=== PATIENT | female | born 1980 | race African-American/Black ===

== ENCOUNTER 2016-11-08 09:24 | Emergency (ER) | payer OTHER ==
[~2016-11-08] VITALS: Ht 160 cm; Wt 65.8 kg
[2016-11-08] MEDS ORDERED: FLUORESCEIN OPHTH TEST STRIP. OS ONE (10:30)
[2016-11-08] MEDS ORDERED: HYDROCODONE/APAP 5/325MG TABLET. PO ONE (10:30)
[2016-11-08] MEDS ORDERED: DIPHTH,PERTUSS(ACELL),TET TOX 0.5 ML DISP.SYRIN. VAX IM ONE (10:30)
[2016-11-08] MEDS ORDERED: TETRACAINE 0.5% OPHTH SOLUTION 4ML BOTTLE. OS ONE (10:30)
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
[2016-11-08] MEDS ORDERED: ERYT1OIN6 EACHEYE (11:50)
[2016-11-08] MEDS ORDERED: ACET-704 PO (11:50)
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
[2016-11-08 12:12] VITALS: BP 114/66
== END 2016-11-08 12:15 | disposition home or self-care (01) ==
LOC: ER 09:24
DX: H11.32 Conjunctival hemorrhage, left eye (principal); S90.02XA Contusion of left ankle, initial encounter; S05.02XA Injury of conjunctiva and corneal abrasion without foreign body, left eye, initial encounter; Y08.89XA Assault by other specified means, initial encounter; Y93.89 Activity, other specified; Y92.89 Other specified places as the place of occurrence of the external cause; Y99.8 Other external cause status
CPT/HCPCS: 70486; 90471; 90715; 99284-25

== ENCOUNTER 2019-01-30 20:32 | Emergency (ER) | payer SELFPAY ==
[~2019-01-30] VITALS: Ht 167.6 cm; Wt 90.7 kg
[~2019-01-30 20:32] MED LIST: ACET-704 PO; ERYT1OIN6 EACHEYE
[2019-01-30 21:05] VITALS: BP 158/91
[2019-01-30 21:36] LABS: BILIRUBIN,URINE NEGATIVE (NEG); CLARITY,URINE CLEAR; COLOR,URINE YELLOW; NITRITE,URINE NEGATIVE (NEG); PH,URINE 6.5; PROTEIN,URINE 100 mg/dL (NEG-TRACE)
[2019-01-30 21:44] LABS: RBC,URINE TNTC /HPF (0-2); SQUAMOUS EPITHELIAL CELL,UR MOD /LPF
[2019-01-30 21:45] LABS: BACTERIA,URINE MANY /HPF (0-FEW); WBC,URINE >40 /HPF (0-4)
[2019-01-30] MEDS ORDERED: CEPH-264 PO (21:54)
--- NOTE | 2019-01-30 21:55 | PHYS DOC ---
Past Medical History Past Medical History: No Pertinent History Past Surgical History: Tubal ligation Alcohol Use: Occasionally Drug Use: None Adult General Chief Complaint Chief Complaint: PAIN ON URINATION [facility] Patient is a 39 year old female who presents with mid lower abdominal pain with urinary frequency 2 days. Rates her pain and discomfort at a 5 out of 10 Review of Systems Review of Systems Constitutional: Denies fever or chills [] Eyes: Denies change in visual acuity, redness, or eye pain [] HENT: Denies nasal congestion or sore throat [] Respiratory: Denies cough or shortness of breath [] Cardiovascular: No additional information not addressed in HPI [] GI: lower mid abdominal pain, denies nausea, vomiting, bloody stools or diarrhea [] : urinary frequency. Denies dysuria or hematuria [] Musculoskeletal: Denies back pain or joint pain [] Integument: Denies rash or skin lesions [] Neurologic: Denies headache, focal weakness or sensory changes [] Endocrine: Denies polyuria or polydipsia [] All other systems were reviewed and found to be within normal limits, except as documented in this note. Allergies Allergies Allergies Coded Allergies Type Severity Reaction Last Updated Verified No Known Drug Allergies 11/08/16 No Physical Exam Physical Exam Constitutional: Well developed, well nourished, no acute distress, non-toxic appearance. [] HENT: Normocephalic, atraumatic, bilateral external ears normal, oropharynx moist, no oral exudates, nose normal. [] Eyes: PERRLA, EOMI, conjunctiva normal, no discharge. [] Neck: Normal range of motion, no tenderness, supple, no stridor. [] Cardiovascular:Heart rate regular rhythm, no murmur [] Lungs & Thorax: Bilateral breath sounds clear to auscultation [] Abdomen: Bowel sounds normal, soft, lower mid and left side tenderness, no masses, no pulsatile masses. [] Skin: Warm, dry, no erythema, no rash. [] Back: No tenderness, no CVA tenderness. [] Extremities: No tenderness, no cyanosis, no clubbing, ROM intact, no edema. [] Neurologic: Alert and oriented X 3, normal motor function, normal sensory function, no focal deficits noted. [] Psychologic: Affect normal, judgement normal, mood normal. [] Current Patient Data Vital Signs Vital Signs Date Time Temp Pulse Resp B/P (MAP) Pulse Ox O2 Delivery O2 Flow Rate FiO2 01/30/19 21:05 99.7 87 16 158/91 (113) 100 Room Air 99.7 Lab Values Laboratory Tests Test 01/30/19 21:05 Urine Collection Type Unknown Urine Color Yellow Urine Clarity Clear Urine pH 6.5 Urine Specific [place] 1.025 Urine Protein 100 mg/dL (NEG-TRACE) Urine Glucose (UA) Negative mg/dL (NEG) Urine Ketones (Stick) Negative mg/dL (NEG) Urine Blood Large (NEG) Urine Nitrite Negative (NEG) Urine Bilirubin Negative (NEG) Urine Urobilinogen Dipstick 1.0 mg/dL (0.2 mg/dL) Urine Leukocyte Esterase Moderate (NEG) Urine RBC Tntc /HPF (0-2) Urine WBC >40 /HPF (0-4) Urine Squamous Epithelial Cells Mod /LPF Urine Bacteria Many /HPF (0-FEW) Urine Mucus Mod /LPF EKG EKG [] Radiology/Procedures Radiology/Procedures [] Course & Med Decision Making Course & Med Decision Making Patient is a 39 year old female who presents with mid lower abdominal pain with urinary frequency 2 days. Rates her pain and discomfort at a 5 out of 10. Denies any burning with urination, nausea, vomiting, fever, diarrhea, cons tipation, shortness of breath, chest pain. Abdomen is soft and nontender. Patient states she does feel some pressure discomfort with palpation to the left lower abdomen. Lungs are clear to auscultation. Heart rate regular without murmur. Vital signs within normal limits. Skin is pink warm and dry. Mucous membranes are moist. PERRLA. Urinalysis shows infection. She will be treated with Keflex. Patient follow-up with her primary care provider. [place] Disclaimer Dragon Disclaimer This electronic medical record was generated, in whole or in part, using a voice recognition dictation system. Departure Departure Impression: Primary Impression: Urinary tract infection Disposition: 01 HOME, SELF-CARE Condition: STABLE Referrals: NO PCP (PCP) Patient Instructions: Urinary Tract Infection Additional Instructions: Drink plenty of fluids. Take medication as prescribed. Scripts Cephalexin (KEFLEX) 500 Mg Capsule 1 CAP PO BID, #14 CAP Prov: SAVANNA HANSEN [employer]CH[employer]IC 01/30/19 Problem Qualifiers Primary Impression: Urinary tract infection Urinary tract infection type: site unspecified Hematuria presence: without hematuria Qualified Codes: N39.0 - Urinary tract infection, site not specified SAVANNA HANSEN [employer]CH[employer]IC Jan 30, 2019 21:55
== END 2019-01-30 21:59 | disposition home or self-care (01) ==
LOC: ER 20:32
DX: N39.0 Urinary tract infection, site not specified (principal); Z98.51 Tubal ligation status
CPT/HCPCS: 81001; 87086; 99284